=== PATIENT | male | born 1965 | race Caucasian/White ===

== ENCOUNTER 2025-05-23 15:14 | Emergency (ER) | payer OTHER ==
[~2025-05-23] VITALS: Ht 177.8 cm; Wt 83.9 kg
[2025-05-23 15:20] VITALS: BP 146/87; O2SAT 99
[2025-05-23] MEDS ORDERED: LIDOCAINE HCL 2% 20 ML VIAL ONE (15:40)
[2025-05-23] MEDS: LIDOCAINE HCL 2% 20 ML VIAL IJ ONE (15:51)
[2025-05-23] MEDS ORDERED: CEFD300C3 PO (16:11)
[2025-05-23] MEDS ORDERED: OXYC-128 PO (16:11)
[2025-05-23] MEDS ORDERED: SULF1TAB48 PO (16:11)
== END 2025-05-23 16:21 | disposition home or self-care (01) ==
LOC: ER 15:23
DX: L02.219 Cutaneous abscess of trunk, unspecified (principal); Z72.0 Tobacco use
CPT/HCPCS: 99283; 10060; 87070; 87077; J3490; A4606; A4663